=== PATIENT | female | born 1990 | race Caucasian/White ===

== ENCOUNTER 2019-01-31 20:55 | Emergency (ER) | payer SELFPAY ==
[~2019-01-31] VITALS: Ht 160 cm; Wt 72.6 kg
[2019-01-31 20:59] VITALS: Ht 160 cm; Wt 72.6 kg
[2019-01-31] MEDS ORDERED: AUGMENTIN 875-11 TAB PO (21:00)
[2019-01-31] MEDS ORDERED: PREDNISONE20 MG PO (21:01)
[2019-01-31 22:36] LABS: HEMATOCRIT 41.7 % (36.0-48.0); HEMOGLOBIN 14.4 g/dL (12-16); MCH 31.3 pg (26.0-34.0); MCHC 34.5 g/dL (31.0-37.0); MCV 90.7 fL (80.0-100.0); MEAN PLATELET VOLUME 9.2 fL (7.4-10.4); PLATELET COUNT 363 10x3/uL (130-400); WBC 22.3 10x3/uL (4.8-10.8)
[2019-01-31 22:38] LABS: HCG SERUM NEGATIVE (NEGATIVE)
[2019-01-31 22:52] LABS: ALBUMIN 4.1 g/dL (3.4-5.0); ALKALINE PHOSPHATASE 69 U/L (46-116); ALT (SGPT) 45 U/L (10-68); BILIRUBIN - TOTAL 2.04 mg/dL (0.2-1.3); CALC OSMOLALITY 274 mosm/kg (275-300); CALCIUM 9.4 mg/dL (8.5-10.1); CARBON DIOXIDE 28.9 mmol/L (21.0-32.0); CHLORIDE - SERUM 99 mmol/L (98-107); CREATININE - SERUM 0.9 mg/dL (0.6-1.3); GLUCOSE 111 mg/dL (74-106); PROTEIN - SERUM 8.4 g/dL (6.4-8.2); SODIUM 136 mmol/L (136-145); UREA NITROGEN 19 mg/dL (7-18); eGFR NON AFRICAN AMERICAN 79 mL/min (90-120)
[2019-01-31 22:54] LABS: LYMPHOCYTES 10 % (15-50); MONOCYTES 14 % (2-11); NEUTROPHILS 75 % (40-80); PLATELET ESTIMATE NORMAL
[2019-02-01 01:47] VITALS: BP 120/78
== END 2019-02-01 03:24 | disposition other institution (70) ==
LOC: D.ER 20:55
PROVIDERS: Family Medicine
DX: J36 Peritonsillar abscess (principal)